=== PATIENT | male | born 1960 | race Caucasian/White ===

== ENCOUNTER 2021-03-26 11:03 | Observation (INO) ==
[2021-03-26] MEDS ORDERED: Perflutren Lipid Microsphere 1.3 ML in 0.9 % Sodium Chloride 8.7 ML IVP PRN (15:52)
[2021-03-26] MEDS ORDERED: Ondansetron 4 MG/2 ML VIAL IVP PRN (16:05)
[2021-03-26] MEDS ORDERED: Naloxone 0.4 MG/ML INJ IVP PRN (16:05)
[2021-03-26 17:41] LABS: BUN/Creatinine Ratio 27 (6-26); Blood Urea Nitrogen 25 mg/dL (8-23); Carbon Dioxide 23 mEq/L (23-29); Chloride 104 mEq/L (98-107); Glucose 104 mg/dL (70-105); Magnesium 1.9 mg/dL (1.6-2.6); Osmolality,Calculated 293 (280-300); Phosphorous 4.3 mg/dL (2.7-4.5); Potassium 4.3 mEq/L (3.5-5.1); Sodium 139 mEq/L (136-145); eGFR For African Americans > 60 (> 60); eGFR For Non-African Americans > 60 (> 60)
[2021-03-26] MEDS: Furosemide 20 MG/2 ML VIAL IVP SCH (20:41)
[2021-03-27] MEDS: Furosemide 20 MG/2 ML VIAL IVP SCH (10:02)
[2021-03-27 10:31] LABS: Basophils % 0.2 %; Eosinophils # 0.4 K/mcL (0.0-0.6); Eosinophils % 2.6 %; Hematocrit 46.2 % (37.5-50.1); Hemoglobin 14.7 g/dL (12.9-16.9); Immature Granulocytes % 0.5 % (0-4); Lymphocytes # 1.5 K/mcL (0.6-4.6); Lymphocytes % 10.6 %; Mean Corpuscular HGB Conc 31.8 g/dL (31.6-35.5); Mean Corpuscular Hemoglobin 29.4 pg (28.0-33.3); Mean Corpuscular Volume 92.4 fL (83.0-100.0); Mean Platelet Volume 10.1 fL (9.4-12.4); Monocytes # 0.7 K/mcL (0.0-1.3); Monocytes % 4.9 %; Neutrophils # 11.4 K/mcL (1.6-8.9); Platelet Count 324 K/mcL (140-400); Red Cell Distribution Width 14.6 % (11.5-14.5); Segmented Neutrophils % 81.2 %; White Blood Count 14.1 K/mcL (4.3-11.1)
[2021-03-27 12:40] LABS: BUN/Creatinine Ratio 24 (6-26); Blood Urea Nitrogen 24 mg/dL (8-23); Calcium 9.1 mg/dL (8.6-10.3); Carbon Dioxide 27 mEq/L (23-29); Chloride 102 mEq/L (98-107); Glucose 115 mg/dL (70-105); Osmolality,Calculated 297 (280-300); Potassium 3.7 mEq/L (3.5-5.1); Sodium 141 mEq/L (136-145); Thyroid Stimulating Hormone 1.061 mcIU/mL (0.340-5.600); eGFR For African Americans > 60 (> 60); eGFR For Non-African Americans > 60 (> 60)
[2021-03-27 15:45] VITALS: BP 131/83; PULSE 86; TEMP 98.4; O2SAT 92
== END 2021-03-27 16:51 | disposition home or self-care (01) ==
LOC: 3BNU → SUATTDRO 15:03
PROVIDERS: ADMIT Family Medicine; ATTEND Student in an Organized Health Care Education/Training Program

== ENCOUNTER 2021-04-23 09:07 | Observation (INO) ==
[2021-04-23] MEDS ORDERED: Acetaminophen 325 MG TABLET PO PRN (09:54)
[2021-04-23] MEDS ORDERED: Ondansetron ODT 4 MG TAB.RAPDIS SL PRN (09:54)
[2021-04-23] MEDS ORDERED: Mag Hydrox/Al Hydrox/Simeth 30 ML UDC PO PRN (09:54)
[2021-04-23] MEDS ORDERED: MOM Conc 10 ML UD.LIQ PO PRN (09:54)
[2021-04-23] MEDS ORDERED: Naloxone 0.4 MG/ML INJ IVP PRN (09:54)
[2021-04-23] MEDS ORDERED: Melatonin 3 MG TABLET PO PRN (09:54)
[2021-04-23] MEDS ORDERED: *HR* Heparin 5,000 UNIT/ML VIAL IVP ONE (10:23)
[2021-04-23] MEDS ORDERED: *HR* Heparin 5,000 UNIT/ML VIAL IVP PRN ×2 (10:23)
[2021-04-23 11:09] LABS: Hemoglobin 12.9 g/dL (12.9-16.9); Mean Corpuscular HGB Conc 32.3 g/dL (31.6-35.5); Mean Corpuscular Hemoglobin 29.2 pg (28.0-33.3); Mean Corpuscular Volume 90.5 fL (83.0-100.0); Mean Platelet Volume 10.7 fL (9.4-12.4); Platelet Count 248 K/mcL (140-400); Red Blood Count 4.42 M/mcL (4.19-5.50); Red Cell Distribution Width 14.6 % (11.5-14.5); White Blood Count 11.3 K/mcL (4.3-11.1)
[2021-04-23 11:16] LABS: INR 1.1
[2021-04-23 11:19] LABS: Heparin anti-factor XA UFH 0.04 IU/mL (0.30-0.70)
[2021-04-23 11:22] LABS: BUN/Creatinine Ratio 18 (6-26); Blood Urea Nitrogen 16 mg/dL (8-23); Calcium 9.2 mg/dL (8.6-10.3); Carbon Dioxide 23 mEq/L (23-29); Chloride 107 mEq/L (98-107); Glucose 124 mg/dL (70-105); Osmolality,Calculated 279 (280-300); Potassium 3.8 mEq/L (3.5-5.1); Sodium 133 mEq/L (136-145); eGFR For African Americans > 60 (> 60); eGFR For Non-African Americans > 60 (> 60)
[2021-04-23 11:58] LABS: Influenza A PCR Negative (Negative); Influenza B PCR Negative (Negative); Resp. Syncytial Virus PCR Negative (Negative); SARS-CoV-2 by PCR (In House) Negative (Negative)
[2021-04-23] MEDS: Heparin 25,000UNIT/250ML 1/2NS 25,000 UNIT/250 ML IV.SOLN IVC SCH (12:03)
[2021-04-23] MEDS: Aspirin 81 MG TAB.CHEW PO SCH (13:48)
[2021-04-24 05:27] LABS: Hematocrit 35.8 % (37.5-50.1); Hemoglobin 11.5 g/dL (12.9-16.9); Mean Corpuscular HGB Conc 32.1 g/dL (31.6-35.5); Mean Corpuscular Hemoglobin 29.1 pg (28.0-33.3); Mean Corpuscular Volume 90.6 fL (83.0-100.0); Mean Platelet Volume 10.3 fL (9.4-12.4); Platelet Count 215 K/mcL (140-400); Red Blood Count 3.95 M/mcL (4.19-5.50); Red Cell Distribution Width 14.7 % (11.5-14.5)
[2021-04-24 05:45] LABS: BUN/Creatinine Ratio 19 (6-26); Blood Urea Nitrogen 18 mg/dL (8-23); Calcium 8.8 mg/dL (8.6-10.3); Carbon Dioxide 27 mEq/L (23-29); Chloride 105 mEq/L (98-107); Glucose 110 mg/dL (70-105); Magnesium 1.9 mg/dL (1.6-2.6); Osmolality,Calculated 287 (280-300); Potassium 3.7 mEq/L (3.5-5.1); Sodium 137 mEq/L (136-145); eGFR For African Americans > 60 (> 60); eGFR For Non-African Americans > 60 (> 60)
[2021-04-24] MEDS: Heparin 25,000UNIT/250ML 1/2NS 25,000 UNIT/250 ML IV.SOLN IVC SCH (06:33)
[2021-04-24] MEDS: Aspirin 81 MG TAB.CHEW PO SCH (07:30)
[2021-04-24] MEDS ORDERED: Ondansetron 4 MG/2 ML VIAL IVP PRN (10:21)
[2021-04-25] MEDS: Heparin 25,000UNIT/250ML 1/2NS 25,000 UNIT/250 ML IV.SOLN IVC SCH (03:36)
[2021-04-25 03:48] LABS: Basophils % 0.5 %; Eosinophils # 0.5 K/mcL (0.0-0.6); Eosinophils % 5.1 %; Hematocrit 34.6 % (37.5-50.1); Hemoglobin 11.3 g/dL (12.9-16.9); Immature Granulocytes % 0.5 % (0-4); Lymphocytes # 1.8 K/mcL (0.6-4.6); Lymphocytes % 20.7 %; Mean Corpuscular HGB Conc 32.7 g/dL (31.6-35.5); Mean Corpuscular Hemoglobin 29.2 pg (28.0-33.3); Mean Corpuscular Volume 89.4 fL (83.0-100.0); Monocytes # 0.5 K/mcL (0.0-1.3); Monocytes % 5.1 %; Platelet Count 226 K/mcL (140-400); Red Blood Count 3.87 M/mcL (4.19-5.50); Red Cell Distribution Width 14.9 % (11.5-14.5); Segmented Neutrophils % 68.1 %; White Blood Count 8.9 K/mcL (4.3-11.1)
[2021-04-25 04:06] LABS: BUN/Creatinine Ratio 20 (6-26); Blood Urea Nitrogen 17 mg/dL (8-23); Calcium 8.8 mg/dL (8.6-10.3); Carbon Dioxide 25 mEq/L (23-29); Chloride 106 mEq/L (98-107); Glucose 119 mg/dL (70-105); Osmolality,Calculated 289 (280-300); Potassium 3.7 mEq/L (3.5-5.1); Sodium 138 mEq/L (136-145); eGFR For African Americans > 60 (> 60); eGFR For Non-African Americans > 60 (> 60)
[2021-04-25] MEDS: Aspirin 81 MG TAB.CHEW PO SCH (07:46)
[2021-04-25] MEDS ORDERED: Losartan/HCTZ 50-12.5 TABLET PO SCH (09:00)
[2021-04-25] MEDS ORDERED: allopurinoL 100 MG TABLET PO SCH (09:00)
[2021-04-25 11:11] VITALS: BP 130/84; PULSE 60; TEMP 97.7; O2SAT 96
[2021-04-25] MEDS ORDERED: *HR* Rivaroxaban 15 MG TABLET PO SCH (12:00)
[2021-04-28 15:36] LABS: APTT (LE Anticoag) 42 sec (32-48); Diluted Russell Viper Venom 35 sec (33-44); PT (LE-Anticoag) 13.2 sec (12.0-15.5)
[2021-04-28 19:38] LABS: FACV Specimen WHOLE BLOOD
[2021-04-29 10:23] LABS: Fac V Leiden R506Q Mut Result NEGATIVE
== END 2021-04-25 12:30 | disposition home or self-care (01) ==
LOC: 2ANU → SUATTDRO 09:51
PROVIDERS: ADMIT Internal Medicine; ATTEND Pharmacist

== ENCOUNTER 2021-10-14 13:16 | Inpatient (IN) ==
[2021-10-14] MEDS ORDERED: *HR* Metoprolol 5 MG/5 ML VIAL IVP ONE (14:08)
[2021-10-14] MEDS ORDERED: DilTIAZem 50 MG/50 ML IV.SOLN IVC SCH (14:15)
[2021-10-14 14:27] LABS: Basophils % 0.2 %; Eosinophils # 0.1 K/mcL (0.0-0.6); Eosinophils % 0.6 %; Hematocrit 43.4 % (37.5-50.1); Hemoglobin 13.9 g/dL (12.9-16.9); Immature Granulocytes % 0.3 % (0-4); Lymphocytes # 1.2 K/mcL (0.6-4.6); Lymphocytes % 10.3 %; Mean Corpuscular Hemoglobin 29.2 pg (28.0-33.3); Mean Corpuscular Volume 91.2 fL (83.0-100.0); Mean Platelet Volume 10.4 fL (9.4-12.4); Monocytes # 0.6 K/mcL (0.0-1.3); Monocytes % 5.2 %; Platelet Count 211 K/mcL (140-400); Red Blood Count 4.76 M/mcL (4.19-5.50); Red Cell Distribution Width 15.1 % (11.5-14.5); Segmented Neutrophils % 83.4 %
[2021-10-14 14:38] LABS: INR 2.4; Prothrombin Time 26.9 Seconds (9.4-12.1)
[2021-10-14 14:41] LABS: Activated Partial Thrombo Time 38.4 Seconds (26.0-36.0)
[2021-10-14 14:56] LABS: Troponin I 0.04 ng/mL (< 0.04)
[2021-10-14 15:16] LABS: Bilirubin,Urine Negative (Negative); Blood,Urine Negative (Negative); Clarity,Urine Clear (Clear); Color,Urine Yellow (Yellow); Glucose,Urine (UA) Normal (Normal); Ketones,Urine Negative (Negative); Leukocyte Esterase,Urine Negative (Negative); Mucus,Urine Few per lpf (None-Few); Nitrite,Urine Negative (Negative); PH,Urine 6.5 pH Units (5.0-8.0); Protein,Urine 30 mg/dL (Neg-Trace); Specific Gravity,Urine 1.024 (1.010-1.025); Urobilinogen,Urine Normal (Normal); WBC,Urine 0-3 per hpf (0-3)
[2021-10-14] MEDS ORDERED: Naloxone 0.4 MG/ML INJ IVP PRN (15:19)
[2021-10-14] MEDS ORDERED: Ondansetron ODT 4 MG TAB.RAPDIS SL PRN (15:19)
[2021-10-14 15:31] LABS: BUN/Creatinine Ratio 17 (6-26); Blood Urea Nitrogen 19 mg/dL (8-23); Calcium 9.3 mg/dL (8.6-10.3); Carbon Dioxide 26 mEq/L (23-29); Chloride 102 mEq/L (98-107); Glucose 137 mg/dL (70-105); Magnesium 1.8 mg/dL (1.6-2.6); Osmolality,Calculated 300 (280-300); Potassium 3.4 mEq/L (3.5-5.1); Sodium 143 mEq/L (136-145); eGFR For African Americans > 60 (> 60); eGFR For Non-African Americans > 60 (> 60)
[2021-10-14] MEDS ORDERED: Amiodarone Premix 150 MG/100 ML BAG IVPB ONE (15:41)
[2021-10-14] MEDS ORDERED: Amiodarone Premix 360 MG/200 ML BAG IVC ONE (17:06)
[2021-10-14] MEDS ORDERED: Warfarin perPT PO PRN (18:00)
[2021-10-14] MEDS ORDERED: *HR* Warfarin 2.5 MG TABLET PO ONE (18:00)
[2021-10-14] MEDS: Pregabalin 50 MG CAPSULE PO SCH (19:54)
[2021-10-14] MEDS: Amiodarone Premix 360 MG/200 ML BAG IVC SCH (22:56)
[2021-10-15 04:12] LABS: Basophils % 0.3 %; Eosinophils # 0.2 K/mcL (0.0-0.6); Eosinophils % 1.4 %; Hemoglobin 13.1 g/dL (12.9-16.9); Immature Granulocytes % 0.5 % (0-4); Lymphocytes # 1.5 K/mcL (0.6-4.6); Lymphocytes % 14.5 %; Mean Corpuscular HGB Conc 32.8 g/dL (31.6-35.5); Mean Corpuscular Hemoglobin 29.4 pg (28.0-33.3); Mean Corpuscular Volume 89.9 fL (83.0-100.0); Mean Platelet Volume 10.9 fL (9.4-12.4); Monocytes # 0.6 K/mcL (0.0-1.3); Monocytes % 5.7 %; Neutrophils # 8.1 K/mcL (1.6-8.9); Platelet Count 211 K/mcL (140-400); Red Blood Count 4.45 M/mcL (4.19-5.50); Red Cell Distribution Width 15.1 % (11.5-14.5); Segmented Neutrophils % 77.6 %; White Blood Count 10.4 K/mcL (4.3-11.1)
[2021-10-15 04:16] LABS: INR 2.8; Prothrombin Time 30.7 Seconds (9.4-12.1)
[2021-10-15 04:20] LABS: BUN/Creatinine Ratio 20 (6-26); Blood Urea Nitrogen 20 mg/dL (8-23); Calcium 8.9 mg/dL (8.6-10.3); Carbon Dioxide 28 mEq/L (23-29); Chloride 105 mEq/L (98-107); Glucose 133 mg/dL (70-105); Magnesium 1.9 mg/dL (1.6-2.6); Osmolality,Calculated 295 (280-300); Potassium 3.4 mEq/L (3.5-5.1); Sodium 140 mEq/L (136-145); eGFR For African Americans > 60 (> 60); eGFR For Non-African Americans > 60 (> 60)
[2021-10-15] MEDS ORDERED: Furosemide 40 MG/4 ML VIAL IVP ONE (08:10)
[2021-10-15] MEDS ORDERED: Furosemide 80 MG in 0.9 % Sodium Chloride 50 ML IVPB ONE (08:30)
[2021-10-15] MEDS ORDERED: Furosemide 20 MG TABLET PO SCH (09:00)
[2021-10-15] MEDS: Pregabalin 50 MG CAPSULE PO SCH ×2 (09:05→21:02)
[2021-10-15] MEDS: allopurinoL 100 MG TABLET PO SCH (09:05)
[2021-10-15] MEDS: Metoprolol XL (24 HR) Succ 50 MG TAB.ER.24H PO SCH (09:05)
[2021-10-15] MEDS: Amiodarone Premix 360 MG/200 ML BAG IVC SCH (09:07)
[2021-10-15] MEDS ORDERED: *HR* FentaNYL (PF) 250 MCG/5 ML VIAL ONE (16:24)
[2021-10-15] MEDS ORDERED: *HR* Midazolam HCl 5 MG/5 ML VIAL IVP ONE (16:24)
[2021-10-15] MEDS ORDERED: 0.9 % Sodium Chloride 1,000 ML ONE (16:25)
[2021-10-15] MEDS ORDERED: Warfarin 1 MG, Warfarin 0.5 MG PO ONE (18:00)
[2021-10-15] MEDS ORDERED: 0.9 % Sodium Chloride 500 ML IV ONE (19:56)
[2021-10-15] MEDS: Furosemide 40 MG/4 ML VIAL IVP SCH (19:59)
[2021-10-15] MEDS ORDERED: Amiodarone Premix 360 MG/200 ML BAG IVC SCH (23:04)
[2021-10-16 05:51] LABS: INR 2.7; Prothrombin Time 30.3 Seconds (9.4-12.1)
[2021-10-16] MEDS: allopurinoL 100 MG TABLET PO SCH (08:48)
[2021-10-16] MEDS: *HR* Amiodarone 200 MG TABLET PO SCH ×2 (08:48→20:23)
[2021-10-16] MEDS: Pregabalin 50 MG CAPSULE PO SCH ×2 (08:48→20:23)
[2021-10-16] MEDS: Metoprolol XL (24 HR) Succ 50 MG TAB.ER.24H PO SCH (08:59)
[2021-10-16] MEDS: Furosemide 40 MG/4 ML VIAL IVP SCH (09:26)
[2021-10-16 12:23] LABS: Calcium 8.9 mg/dL (8.6-10.3); Potassium 3.5 mEq/L (3.5-5.1)
[2021-10-16] MEDS ORDERED: *HR* Warfarin 2.5 MG TABLET PO ONE (18:00)
[2021-10-17 06:24] LABS: INR 2.1; Prothrombin Time 23.1 Seconds (9.4-12.1)
[2021-10-17 06:49] LABS: Calcium 8.6 mg/dL (8.6-10.3); Potassium 3.4 mEq/L (3.5-5.1)
[2021-10-17 09:16] LABS: Uric Acid 12.3 mg/dL (2.3-7.6)
[2021-10-17] MEDS: Metoprolol XL (24 HR) Succ 50 MG TAB.ER.24H PO SCH (09:21)
[2021-10-17] MEDS ORDERED: Metoprolol XL (24 HR) Succ 50 MG TAB.ER.24H PO SCH (09:30)
[2021-10-17] MEDS: allopurinoL 100 MG TABLET PO SCH (10:39)
[2021-10-17] MEDS: *HR* Amiodarone 200 MG TABLET PO SCH ×2 (10:39→19:50)
[2021-10-17] MEDS: Pregabalin 50 MG CAPSULE PO SCH ×2 (10:39→19:50)
[2021-10-17 10:41] LABS: Bilirubin,Urine Negative (Negative); Blood,Urine Trace (Negative); Clarity,Urine Turbid (Clear); Color,Urine Light-Yellow (Yellow); Glucose,Urine (UA) Normal (Normal); Ketones,Urine Negative (Negative); Leukocyte Esterase,Urine Negative (Negative); Mucus,Urine Few per lpf (None-Few); Nitrite,Urine Negative (Negative); PH,Urine 5.5 pH Units (5.0-8.0); Protein,Urine Trace mg/dL (Neg-Trace); RBC,Urine 0-3 per hpf (0-3); Specific Gravity,Urine 1.014 (1.010-1.025); Squamous Epithelial Cell,Urine Few per hpf (None-Few); Urobilinogen,Urine Normal (Normal); WBC,Urine 0-3 per hpf (0-3)
[2021-10-17 10:50] LABS: Sodium, Urine 18.1 mEq/L
[2021-10-17] MEDS: 0.9 % Sodium Chloride 1,000 ML IVC SCH ×2 (11:31→16:41)
[2021-10-17 13:49] LABS: INR 2.2; Prothrombin Time 24.1 Seconds (9.4-12.1)
[2021-10-17 17:54] LABS: Complement C3 143 mg/dL (87-200)
[2021-10-17] MEDS ORDERED: *HR* Warfarin 2.5 MG TABLET PO ONE (18:00)
[2021-10-17] MEDS: Metoprolol XL (24 HR) Succ 25 MG TAB.ER.24H PO SCH (19:53)
[2021-10-18] MEDS: 0.9 % Sodium Chloride 1,000 ML IVC SCH ×3 (00:42→16:49)
[2021-10-18 05:32] LABS: INR 2.2; Prothrombin Time 24.8 Seconds (9.4-12.1)
[2021-10-18 05:40] LABS: Calcium 8.4 mg/dL (8.6-10.3); Magnesium 1.9 mg/dL (1.6-2.6); Phosphorous 4.6 mg/dL (2.7-4.5); Potassium 3.6 mEq/L (3.5-5.1)
[2021-10-18] MEDS: allopurinoL 100 MG TABLET PO SCH (08:17)
[2021-10-18] MEDS: Pregabalin 50 MG CAPSULE PO SCH ×2 (08:17→19:51)
[2021-10-18] MEDS: Aspirin Enteric Coated 81 MG Tablet PO SCH (08:17)
[2021-10-18] MEDS: *HR* Amiodarone 200 MG TABLET PO SCH ×2 (08:17→19:50)
[2021-10-18] MEDS: Metoprolol XL (24 HR) Succ 25 MG TAB.ER.24H PO SCH (08:18)
[2021-10-18] MEDS ORDERED: *HR* Warfarin 2.5 MG TABLET PO ONE (18:00)
[2021-10-18] MEDS ORDERED: Warfarin perPT PO PRN (18:00)
[2021-10-19 00:30] LABS: Prothrombin Time 22.6 Seconds (9.4-12.1)
[2021-10-19 00:39] LABS: Calcium 8.4 mg/dL (8.6-10.3); Potassium 4.1 mEq/L (3.5-5.1)
[2021-10-19] MEDS: Metoprolol XL (24 HR) Succ 25 MG TAB.ER.24H PO SCH ×3 (01:59→19:17)
[2021-10-19] MEDS: *HR* Amiodarone 200 MG TABLET PO SCH ×2 (07:48→19:17)
[2021-10-19] MEDS: allopurinoL 100 MG TABLET PO SCH (07:49)
[2021-10-19] MEDS: Pregabalin 50 MG CAPSULE PO SCH ×2 (07:49→19:20)
[2021-10-19] MEDS: Aspirin Enteric Coated 81 MG Tablet PO SCH (07:49)
[2021-10-19 15:31] VITALS: BP 166/91; PULSE 80; TEMP 98.2; O2SAT 93
[2021-10-19] MEDS ORDERED: *HR* Warfarin 2.5 MG TABLET PO ONE (18:00)
[2021-10-19] MEDS ORDERED: *HR* Metoprolol 5 MG/5 ML VIAL IVP ONE (18:57)
[2021-10-19] MEDS ORDERED: Metoprolol XL (24 HR) Succ 25 MG TAB.ER.24H PO STA (20:58)
== END 2021-10-19 21:20 | disposition home or self-care (01) | DRG 281 ==
LOC: 2ANU 13:16 → EMEROOARM 13:16 → SUATTDRO 15:31 → 2NNU 15:56
PROVIDERS: ADMIT Internal Medicine; ATTEND Family Medicine